=== PATIENT | female | born 1995 | race African-American/Black ===

== ENCOUNTER 2020-03-21 08:30 | Inpatient (IN) | payer OTHER ==
--- NOTE | 2020-03-21 09:38 | HP ---
Past Medical History - Admission Chief Complaint: Labor History of Present Illness: 24yo @ 40.6wks here in labor, by stated CHRISTAL 03/15/20. Regular contractions. No LOF/VB. 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: Alzheimer's, CVA, Dementia, Migraine, Multiple Sclerosis, Peripheral Neuropathy, Parkinson's, Seizure, Syncope, TIA, Vertigo, Other Cardiovascular: No: AFIB, Aneurysm, Aortic Insufficiency, Aortic Stenosis, CAD, CHF, Deep Vein Thrombosis, HTN, Hyperlipdemia, OK, Mitral Insufficiency, Mitral Stenosis, Murmur, Pulmonary Hypertension, Other Pulmonary: No: Asthma, Bronchitis, Cancer, COPD, O2 Dependent, Pneumonia, Previously Intubated, Pulmonary Embolus, Pulmonary Fibrosis, Sleep Apnea, Other Gastrointestinal: No: Ascites, Cancer, Constipation, Crohn's Disease, Diverticulitis, Diverticulosis, Esophageal Varices, Gastritis, GERD, GI Bleed, Hemorrhoids, Hiatal Hernia, Inflamatory Bowel Disease, Irritable Bowel Disease, Pancreatitis, Peptic Ulcer Disease, Ulcerative Colitis, Other Hepatobiliary: No: Cirrhosis, Cholelithiasis, Cholecystitis, Choledocholithiasis, Hepatitis A, Hepatitis B, Hepatitis C, Other Renal/: No: Renal Failure, Renal Inusuff, BPH, Cancer, Hematuria, Hemodialysis, Neurogenic Bladder, Renal Calculi, UTI, Other Reproductive: No: Ectopic , Endometriosis, Fibroids, PID, Polycystic Ovary Syndrome, Postmenopausal, Other ...: 1 ...Para: 0 ...Term: 0 ...EDC by Dates: 03/15/20 Infectious Disease: No: AIDS, C-Diff, Herpes Zoster, HIV, MRSA, STD's, Tuberculosis, VREF, Other - Past Surgical History Past Surgical History: Yes: None Hx Myomectomy: No Hx Transabdominal Cerclage: No - Smoking History Smoking history: Never smoked Have you smoked in the past 12 months: No - Alcohol/Substance Use Hx Alcohol Use: No History of Substance Use: reports: None - Social History Usual Living Arrangement: Yes: With Parent Do you think of yourself as: Straight/Heterosexual ADL: Independent Home Medications - Allergies Allergies/Adverse Reactions: Allergies Allergy/AdvReac Type Severity Reaction Status Date / Time No Known Allergies Allergy Verified 03/21/20 09:32 - Home Medications Home Medications: Ambulatory Orders NK [No Known Home Medication] 03/21/20 Review of Systems - Review of Systems Constitutional: reports: No Symptoms Cardiovascular: reports: No Symptoms Respiratory: reports: No Symptoms Gastrointestinal: reports: No Symptoms Physical Exam - Maternity - Abdominal Exam/OB Number of Fetuses: Single Presentation: Vertex Contractions: Yes Regularity: Regular Intensity: Mod/Strong Monitor Mode: External Heart Rate Location: [facility] Category: I Decelerations: None - Vaginal Exam/OB Vaginal Bleeding: No Dilatation (cm): 8-9 Effacement (%): 100 Amniotic Membrane Status: Intact Presentation: Vertex/Position Station: -1 - Physical Exam Edema: No Problem List - Problems (1) 40 weeks gestation of Code(s): Z3A.40 - 40 WEEKS GESTATION OF Assessment/Plan 24yo @ 40.6wks by stated CHRISTAL here in labor Admit to L&D PNL ordered including Urine Drug Screen given lack of care Cat I tracing 8-9cm by Laborist exam, though difficult 2/2 pt discomfort Pitocin/AROM prn Anticipate Daniela Salcido MD
[2020-03-21] MEDS ORDERED: SODIUM CHLORIDE 1,000 ML IV SCH (09:45)
--- NOTE | 2020-03-21 09:51 | PD.OB.PROG ---
Past Medical History - Primary Care Physician Documenting Provider Type: Laborist - Admission Chief Complaint: contractions History of Present Illness: 24yo EDC 03/15 per patient presents with c/o contractions. PNC at [facility] until 35 weeks. She was scheduled for induction and [facility] on Sunday. Denies lof, no vaginal bleeding. 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 Cardio/Vascular: Denies/None Pulmonary: Denies/None Gastrointestinal: Denies/None Hepatobiliary: Denies/None Renal/: Denies/None ...: 1 ...Para: 0 ...Term: 0 ...EDC by Dates: 03/15/20 Heme/Onc: Denies/None Infectious Disease: Denies/None Psych: Denies/None Musculoskeletal: Denies/None Rheumatology: Denies/None ENT: Denies/None Endocrine: Denies/None Dermatology: Denies/None - Past Surgical History Past Surgical History: Yes: None - Smoking History Smoking history: Never smoked Have you smoked in the past 12 months: No - Alcohol/Substance Use Hx Alcohol Use: No History of Substance Use: reports: None - Social History ADL: Independent Review of Systems - Review of Systems Constitutional: reports: No Symptoms Eyes: reports: No Symptoms HENT: reports: No Symptoms Neck: reports: No Symptoms Cardiovascular: reports: No Symptoms Respiratory: reports: No Symptoms Gastrointestinal: reports: Abdominal Pain Genitourinary: reports: No Symptoms Breasts: reports: No Symptoms Reported Musculoskeletal: reports: No Symptoms Integumentary: reports: No Symptoms Neurological: reports: No Symptoms Endocrine: reports: No Symptoms Hematology/Lymphatic: reports: No Symptoms Psychiatric: reports: No Symptoms Physical Exam - Obstetrical - Abdominal Exam/OB Number of Fetuses: Single Presentation: Vertex Contractions: Yes Regularity: Regular Intensity: Mod/Strong Monitor Mode: External Heart Rate (range): 130 mod variability Category: II Accelerations: Uniform Decelerations: Variable - Vaginal Exam/OB Vaginal Bleeding: No Speculum Exam: No Dilatation (cm): 8 Effacement (%): 100 Amniotic Membrane Status: Intact Presentation: Vertex/Position Station: -3 - Physical Exam Musculoskeletal: Yes: WNL Extremities: Yes: WNL Integumentary: Yes: WNL ...Motor Strength: WNL Psychiatric: Yes: WNL Assessment/Plan 24yo at 40.6 weeks in active labor called covering provider pt to be admitted to L&D Dr. Camacho
--- NOTE | 2020-03-21 09:59 | PN ---
Progress Note, Labor Vaginal Exam #1 Labor Exam Date: 03/21/20 Labor Exam Time: 09:57 Heart Rate (range): Cat I Dilatation: 6 Effacement (%): 100 Amniotic Membrane Status: Ruptured Presentation: Vertex/Position Station: -3 Remarks: AROM, clears Epidural recommended; pt initially declined, but will consider Pitocin reji Salcido MD
[2020-03-21 10:17] VITALS: BMI 41.0
[2020-03-21] MEDS ORDERED: OXYTOCIN 30 UNITS in 0.9% NS 30 UNIT/500 ML INFUS.BAG IVPB ONE (10:23)
[2020-03-21] MEDS ORDERED: OXYTOCIN 30 UNITS in 0.9% NS 30 UNIT/500 ML INFUS.BAG IVPB SCH (10:30)
[2020-03-21] MEDS ORDERED: AMPICILLIN - 2 GM in SODIUM CHLORIDE 100 ML IVPB ONE (10:38)
[2020-03-21 11:10] LABS: BASO % 0.7 % (0-2.0); EOS % 0.1 % (0-4.5); HEMATOCRIT 31.5 % (32.4-45.2); HEMOGLOBIN 10.5 GM/dL (10.7-15.3); LYMPH % 13.3 % (8-40); MCH 31.8 pg (25.7-33.7); MCHC 33.4 g/dl (32.0-36.0); MEAN CELL VOLUME 95.5 fl (80-96); MEAN PLT VOLUME 7.7 fl (7.5-11.1); MONO % 7.1 % (3.8-10.2); NEUT % 78.8 % (42.8-82.8); PLATELET COUNT 316 K/MM3 (134-434); RDW 13.4 % (11.6-15.6); WHITE BLOOD COUNT 11.1 K/mm3 (4.0-10.0)
[2020-03-21 11:15] LABS: INR 0.9 (0.83-1.09); PROTHROMBIN TIME (PATIENT) 10.6 SEC (9.7-13.0)
[2020-03-21 11:18] LABS: ACTIVATED PTT 30.1 SECONDS (25.2-36.5)
[2020-03-21] MEDS ORDERED: OXYTOCIN 20 UNITS in 0.9% NS 20 UNIT/1,000 ML INFUS.BAG IV ONE (11:40)
[2020-03-21 11:42] LABS: ALBUMIN 2.9 g/dl (3.4-5.0); BILIRUBIN,TOTAL 0.2 mg/dL (0.2-1); BLOOD UREA NITROGEN 12.8 mg/dL (7-18); CALCIUM 9.1 mg/dL (8.5-10.1); CREATININE 0.8 mg/dL (0.55-1.3); POTASSIUM 4.1 mmol/L (3.5-5.1); TOT PROT 7.1 g/dl (6.4-8.2); URIC ACID 4.4 mg/dL (2.6-7.2)
--- NOTE | 2020-03-21 12:22 | PN ---
Progress Note, Labor Vaginal Exam #2 Labor Exam Date: 03/21/20 Labor Exam Time: 12:21 Heart Rate (range): Cat I Dilatation: 10 Effacement (%): 100 Amniotic Membrane Status: Ruptured Presentation: Vertex/Position Station: 0 Remarks: Pt requesting to be examined C/C/0, advised passive descent, but wants to push Anticipate Daniela Salcido MD
[2020-03-21] MEDS ORDERED: METHYLERGONOVINE MALEATE 0.2 MG/1 ML AMP IM PRN (13:30)
[2020-03-21] MEDS ORDERED: IBUPROFEN 600 MG TABLET (FP) PO PRN (13:30)
[2020-03-21] MEDS ORDERED: WITCH HAZEL 50% (TUCKS) 40 PAD/JAR PAD TP PRN (13:30)
[2020-03-21] MEDS ORDERED: BISACODYL 10 MG SUPP.RECT RC PRN (13:30)
[2020-03-21] MEDS ORDERED: BENZOCAINE 28 GM HEMORRHOIDAL OINTMENT TP PRN (13:30)
[2020-03-21] MEDS ORDERED: ACETAMINOPHEN 325 MG TABLET (FP) PO PRN (13:30)
[2020-03-21] MEDS ORDERED: BENZOCAINE 20% 57 GM BOTTLE TP PRN (13:30)
[2020-03-21] MEDS ORDERED: OXYTOCIN 20 UNITS in 0.9% NS 20 UNIT/1,000 ML INFUS.BAG IV SCH (13:30)
--- NOTE | 2020-03-21 13:30 | PN ---
Delivery - Delivery Vaginal Delivery: Spontaneous Type of Anesthesia: Local Episiotomy/Laceration: Midline, 1st degree EBL (cc): 250 Delivery, Single - Condition of Winder Fixer/Insurance Claims Clerk Present: No Gender: Female Position: Right, OA - 1 Minute Total Score: 9 5 Minutes Total Score: 9 - Feeding Plan Initial Plan: Exclusive throughout hospitalization Remarks - Remarks Remarks: of VFI from LANCE position over intact perineum. 40 week . No anesthesia. Spontaneous delivery of anterior shoulder and body. No nuchal. No meconium. Infant placed on mother's abdomen. Cord clamped and cut by provider and support person. Weight pending to allow skin to skin. Apgars 9/9. Spontaneous delivery of intact placenta with 3VC. Fundus firm. Perineum inspected, first degree laceration noted, repaired with 10cc of 1% lidocaine injected with 2-0 chromic. Hemostasis noted. Mother and baby doing well. EBL 250ml. Twila Salcido MD
[2020-03-21] MEDS ORDERED: AMPICILLIN - 1 GM in SODIUM CHLORIDE 100 ML IVPB SCH (14:39)
[2020-03-21 15:50] LABS: COCAINE, UR NEGATIVE ng/ml (CUTOFF=300); METHADONE, UR NEGATIVE ng/ml (CUTOFF=300); OPIATES, URI NEGATIVE ng/ml (CUTOFF=300); PHENCYCLIDINE,URINE NEGATIVE ng/ml (CUTOFF=25); URINE AMPHETAMINES NEGATIVE ng/ml (CUTOFF=500); URINE BARBITURATES NEGATIVE ng/ml (CUTOFF=200); URINE BENZODIAZEPINES NEGATIVE ng/ml (CUTOFF=200)
--- NOTE | 2020-03-22 10:27 | PN ---
Post Progress Note Post Day: 1 Type of Delivery: Vital Signs: Vital Signs Temperature 98.7 F 03/22/20 06:00 Pulse Rate 85 03/22/20 06:00 Respiratory Rate 18 03/22/20 06:00 Blood Pressure 100/50 L 03/22/20 06:00 O2 Sat by Pulse Oximetry (%) 96 03/21/20 18:13 Uterus: Yes: Fundus below umbilicus Incision: Yes: Dressing dry and intact Abdomen/GI: Yes: Abdomen soft Lochia: Yes: Rubra Lochia, amount: Small Extremities: Yes: Calves non-tender Perineum: Yes: Laceration Activity: Ambulating - Labs Labs: CBC WBC 11.1 K/mm3 (4.0-10.0) H 03/21/20 10:45 RBC 3.30 M/mm3 (3.60-5.2) L 03/21/20 10:45 Hgb 10.5 GM/dL (10.7-15.3) L 03/21/20 10:45 Hct 31.5 % (32.4-45.2) L 03/21/20 10:45 MCV 95.5 fl (80-96) 03/21/20 10:45 MCH 31.8 pg (25.7-33.7) 03/21/20 10:45 MCHC 33.4 g/dl (32.0-36.0) 03/21/20 10:45 RDW 13.4 % (11.6-15.6) 03/21/20 10:45 Plt Count 316 K/MM3 (134-434) 03/21/20 10:45 MPV 7.7 fl (7.5-11.1) 03/21/20 10:45 Absolute Neuts (auto) 8.7 K/mm3 (1.5-8.0) H 03/21/20 10:45 Neutrophils % 78.8 % (42.8-82.8) 03/21/20 10:45 Lymphocytes % 13.3 % (8-40) 03/21/20 10:45 Monocytes % 7.1 % (3.8-10.2) 03/21/20 10:45 Eosinophils % 0.1 % (0-4.5) 03/21/20 10:45 Basophils % 0.7 % (0-2.0) 03/21/20 10:45 Nucleated RBC % 0 % (0-0) 03/21/20 10:45 Problem List - Problems (1) 40 weeks gestation of Code(s): Z3A.40 - 40 WEEKS GESTATION OF Assessment/Plan 24yo s/p , PPD#1 Routine PP care PO pain control Labs reviewed D/C to home PPD#2 Daniela Salcido MD
[2020-03-22] MEDS: PRENATAL VITAMINS W/ FOLIC ACID TABLET (FP) PO SCH (10:41)
[2020-03-22 11:10] LABS: BASO % 0.5 % (0-2.0); EOS % 0.2 % (0-4.5); HEMATOCRIT 27.4 % (32.4-45.2); HEMOGLOBIN 9.2 GM/dL (10.7-15.3); LYMPH % 14.2 % (8-40); MCH 31.9 pg (25.7-33.7); MCHC 33.6 g/dl (32.0-36.0); MEAN CELL VOLUME 94.9 fl (80-96); MEAN PLT VOLUME 7.5 fl (7.5-11.1); MONO % 9.7 % (3.8-10.2); NEUT % 75.4 % (42.8-82.8); PLATELET COUNT 304 K/MM3 (134-434); RBC 2.89 M/mm3 (3.60-5.2); RDW 13.6 % (11.6-15.6); WHITE BLOOD COUNT 16.1 K/mm3 (4.0-10.0)
[2020-03-22] MEDS ORDERED: SENNOSIDES/DOCUSATE COMBO (SENNA PLUS) TABLET (UD) PO PRN (22:00)
--- NOTE | 2020-03-23 08:56 | DS ---
Physical Examination Vital Signs: Vital Signs Temperature 98.2 F 03/22/20 22:00 Pulse Rate 92 H 03/22/20 22:00 Respiratory Rate 18 03/22/20 22:00 Blood Pressure 127/81 03/22/20 22:00 O2 Sat by Pulse Oximetry (%) 96 03/21/20 18:13 Findings/Remarks: ambulating, tolerating PO, lochia decreased, voiding, breast feeding. Reports PNC at [facility] in [place] but no available records. Constitutional: Yes: Well Nourished HENT: Yes: Atraumatic Neck: Yes: Supple Cardiovascular: Yes: Regular Rate and Rhythm Respiratory: Yes: Regular Gastrointestinal: Yes: Soft Renal/: Yes: Other Breast(s): Yes: Other Musculoskeletal: Yes: WNL Extremities: Yes: WNL Edema: Yes Edema: LLE: Trace, RLE: Trace Integumentary: Yes: WNL Neurological: Yes: Alert, Oriented ...Motor Strength: WNL Psychiatric: Yes: Alert, Oriented Labs: CBC, BMP 03/22/20 09:52 03/21/20 10:45 Discharge Summary Problems reviewed: Yes Reason For Visit: LABOR Current Active Problems 40 weeks gestation of (Acute) Procedures: Principal: Vaginal delivery Hospital Course: Uncomplicated delivery and recovery Health Concerns: Undocumented care and patient informed regarding SW consult Plan of Treatment: SW consult prior to discharge, PP instructions discussed, follow up 3-4 weeks as outpatient Condition: Stable - Instructions Diet, Activity, Other Instructions: Regular Diet Follow up in 4 weeks for your visit Referrals: Twila Salcido MD [Staff Physician] - Disposition: HOME - Home Medications Comprehensive Discharge Medication List: Ambulatory Orders Breast Pump 1 each MC 5XD 30 Days #1 each 03/22/20 Ibuprofen 600 mg PO Q6H PRN #30 tablet 03/22/20 Pnv No.121/Iron/Folic Acid [ Multivitamin Tablet] 1 each PO DAILY 30 Days #30 tablet 03/22/20
[2020-03-23] MEDS: PRENATAL VITAMINS W/ FOLIC ACID TABLET (FP) PO SCH (09:54)
[2020-03-23 09:56] VITALS: BP 116/73; PULSE 79; TEMP 98.7
== END 2020-03-23 13:20 | disposition home or self-care (01) | DRG 560 ==
LOC: JLDR 08:30 → J3W 15:39
PROVIDERS: ADMIT Obstetrics & Gynecology; ATTEND Obstetrics & Gynecology
PROC: 10E0XZZ Delivery of Products of Conception, External Approach (ICD-10-PCS; principal; 2020-03-21)
PROC: 0HQ9XZZ Repair Perineum Skin, External Approach (ICD-10-PCS; 2020-03-21)
DX: O48.0 Post-term pregnancy (principal); O70.0 First degree perineal laceration during delivery; Z3A.40 40 weeks gestation of pregnancy; Z37.0 Single live birth
CPT/HCPCS: 36415; 59409; 80053; 80307; 82565; 83615; 84156; 84550; 85025; 85610; 85730; 86762; 86780; 86850; 86900; 86901; 87340; 87389; U0003